=== PATIENT | male | born 1955 | race Caucasian/White ===

== ENCOUNTER 2016-11-08 16:20 | Outpatient (CLI) | payer BC ==
[2015-02-26 15:41] VITALS: BP 154/82
== END 2016-11-08 16:22 ==
LOC: RAD 16:20
PROVIDERS: ATTEND Physician Assistant
DX: M54.5 Low back pain (principal)
CPT/HCPCS: 87086

== ENCOUNTER 2016-11-10 08:26 | Outpatient (CLI) | payer BC ==
[2015-02-26 15:41] VITALS: BP 154/82
--- NOTE | 2016-11-10 15:29 | Diagnostic Imaging Report ---
JANET ROGERS [facility] [address] [facility] [address] [address] Report Submission Date: Nov 10, 2016 9:34:14 AM CDT Patient Study Name: YAMILA SONG Date: Nov 10, 2016 8:44:23 AM CDT Modality Type: US Gender: M Description: US RETROPERITONEAL LIMIT : 59 Institution: [facility] Physician: JANET ROGERS Renal ultrasound Clinical history lower back pain renal stones Technique: Duplex ultrasound and color Doppler was performed of the kidneys. Findings: The right kidney measures 11.5 x 5.5 x 5.8 cm. The left kidney measures up to 0.7 x 6.3 x 5.2 cm. Blood flow is present both kidneys. The right kidney demonstrates a 5 mm lower pole calculus with echogenicity and posterior shadowing as expected. The left kidney shows a 10 x 9 mm hypoechoic nodular density protruding from the inferior pole. Whether this is a complex cyst or small mass is indeterminate. There are multiple left renal calculi. 2 adjacent calculi in the lower pole left kidney measure 8 x 5 mm and 5 x 5 mm. A lateral calculus measures 4 mm. Impression: Bilateral renal calculi Blood flow is present in both kidneys which are normal in size and echogenicity 1 x 0.9 cm hypoechoic nodular density arising from the lower pole the left kidney. Considerations are small mass or complex cyst. Consider follow up ultrasound evaluation and 3-6 months or MRI of the kidneys Electronically signed on Nov 10, 2016 9:34:14 AM CDT by: Emre LICEA
--- NOTE | 2016-11-10 15:30 | Diagnostic Imaging Report ---
JANET ROGERS [facility] [address] [facility] [address] [place], [place]. [address] Report Submission Date: Nov 10, 2016 2:05:07 PM CDT Patient Study Name: YAMILA SONG Date: Nov 10, 2016 1:10:27 PM CDT Modality Type: CT\SR Gender: M Description: CT ABD & PELVIS W/O CO : 59 Institution: [facility] [place] [facility] Physician: JANET ROGERS CT abdomen and pelvis without contrast Clinical history: Left-sided back pain. History of kidney stones. Technique: CT of the abdomen and pelvis is performed without oral or intravenous administration of contrast. Sagittal and coronal reconstructions are performed by the technologist. Findings: Visualized lung bases are clear. The liver and spleen demonstrate normal attenuation without focal defect. Gallbladder is mildly contracted with calcified gallstones. There is no pancreatic or adrenal abnormality. The kidneys are of normal size, shape and position with bilateral intrarenal calculi. There is a small apparent cortical cyst on the left. This corresponds to the abnormality seen on recent ultrasound. Vascular calcification is present in the abdominal aorta without evidence of aneurysm. Bladder is unremarkable. There is no evident bladder or ureteral calculus. The appendix is visualized and is within normal limits. Diverticula are demonstrated in the descending and sigmoid colon without evidence of diverticulitis. There is no free fluid in the pelvis or abdomen. Impression: 1. Bilateral intrarenal calculi. 2. Vascular calcification. 3. Thoracolumbar spondylosis. 4. Diverticulosis. 5. Cholelithiasis. 6. Total D L P: [phone]. Electronically signed on Nov 10, 2016 2:05:07 PM CDT by: Germán LICEA
== END 2016-11-10 08:27 ==
LOC: RAD 08:26
PROVIDERS: ATTEND Physician Assistant
DX: M54.5 Low back pain (principal); Z87.442 Personal history of urinary calculi; N20.0 Calculus of kidney; N28.89 Other specified disorders of kidney and ureter
CPT/HCPCS: 74176; 76775